=== PATIENT | female | born 1975 | race Caucasian/White ===

== ENCOUNTER 2022-12-29 10:38 | Emergency (ER) | payer BC ==
[~2022-12-29] VITALS: Ht 175.3 cm; Wt 98.9 kg
[2022-12-29 13:47] VITALS: BP 136/75
--- NOTE | 2022-12-29 21:35 | EKG ---
[facility] [address] [facility] [place] [address] Signed Normal sinus rhythm Possible Left atrial enlargement Borderline ECG No previous ECGs available Confirmed by TRIP LI MD ([id number]) on 12/29/2022 9:34:58 PM Electronically Signed By: TRIP LI MD 12/29/222134 PATIENT NAME: LIDIA JOSE Electrocardiogram DATE OF : 77 PHYSICIAN: TRIP LI MD REPORT #: [id number] REPORT IS CONFIDENTIAL AND NOT TO BE RELEASED WITHOUT AUTHORIZATION
== END 2022-12-29 13:49 | disposition home or self-care (01) ==
LOC: ED 10:38
DX: R55 Syncope and collapse (principal); Z88.0 Allergy status to penicillin
CPT/HCPCS: 36415; 80053; 81003; 84703; 85025; 93005; 93010; 99284-25; J7030

== ENCOUNTER 2023-01-09 13:52 | Emergency (ER) | payer BC ==
[~2023-01-09] VITALS: Ht 175.3 cm; Wt 97.5 kg
--- OUTSIDE RECORDS SUMMARY | 2023-01-09 14:16 | XMS ---
PreManage Notification: LIDIA JOSE [employer] Events No recent Security Events currently on file CRITERIA MET - [facility] - 2 Visits in 30 Days CARE PROVIDERS There are no care providers on record at this time. Damian has no Care Guidelines for this patient. [place] MO[facility] NOTE: Visits indicate total known visits. ED/C VISIT TRACKING (12 MO.) [facility] COMPLAINT: - CHEST BURNING, SOB, HEADACHE, DIZZINESS 12/29/2022 10:[address] [facility] [place] TYPE: Emergency COMPLAINT: - SYNCOPE EPISODE, HIGH HEART RATE, SHAKY DIAGNOSES: - Allergy status to penicillin - Syncope and collapse INPATIENT VISIT TRACKING (12 MO.) No inpatient visits to display in this time frame [email or web address]
[2023-01-09 17:12] VITALS: BP 134/86
--- NOTE | 2023-01-10 15:07 | EKG ---
[facility] [address] [facility] [place], [place] [address] Signed Normal sinus rhythm Possible Left atrial enlargement Borderline ECG When compared with ECG of 29-DEC-2022 11:06, No significant change was found Confirmed by TRIP LI MD ([id number] on 01/10/2023 3:06:46 PM Electronically Signed By: TRIP LI MD 01/10/23 1507 PATIENT NAME: LIDIA JOSE Electrocardiogram DATE OF : 77 PHYSICIAN: TRIP IL MD REPORT #: [id number] REPORT IS CONFIDENTIAL AND NOT TO BE RELEASED WITHOUT AUTHORIZATION
== END 2023-01-09 17:13 | disposition home or self-care (01) ==
LOC: ED 13:52
DX: K21.9 Gastro-esophageal reflux disease without esophagitis (principal); R42 Dizziness and giddiness; Z88.0 Allergy status to penicillin
CPT/HCPCS: 36415; 71045; 80053; 84484; 85025; 93005; 93010; 99285-25